=== PATIENT | female | born 1935 | race American Indian/Alaskan Native ===

== ENCOUNTER 2016-12-09 20:23 | Observation (INO) | payer MEDICARE, MEDICAID ==
[2016-12-09 20:35] VITALS: BMI 38.0
--- NOTE | 2016-12-09 21:05 | ED PDOC ---
Arrival/HPI - General Chief Complaint: Syncope Time Seen by Provider: 12/09/16 20:31 Historian: Patient - History of Present Illness Narrative History of Present Illness (Text): 12/09/16 20:45 Rama Reeves is an 81 year old female, whose past medical history includes hypertension and diabetes, who presents to the ED accompanied by family status post syncopal episode. Family states patient was at [employer] tonight when she had a syncopal episode. Daughter states patient's head fellback, eyes rolled back, and was shaking a bit. Patient states she feels fine currently. Patient denies any vision changes, speech changes, headache, dizziness, fever, chills, chest pain, shortness of breath, abdominal pain, nausea, vomiting, diarrhea, urinary symptoms, back pain, neck pain, or any other complaints. Time/Duration: Other Symptom Onset: Gradual Symptom Course: Unchanged Activities at Onset: Rest, Light Context: Home Past Medical History - Provider Review Nursing Documentation Reviewed: Yes - Cardiac Hx Cardiac Disorders: Yes Hx Hypertension: Yes - Pulmonary Hx Respiratory Disorders: No - Neurological Hx Neurological Disorder: No - HEENT Hx HEENT Disorder: No - Renal Hx Renal Disorder: No - Endocrine/Metabolic Hx Endocrine Disorders: Yes Hx Diabetes Mellitus Type 2: Yes - Hematological/Oncological Hx Blood Disorders: No - Integumentary Hx Dermatological Disorder: No Hx Basal Cell Carcinoma: No - Musculoskeletal/Rheumatological Hx Musculoskeletal Disorders: No - Gastrointestinal Hx Gastrointestinal Disorders: No - Genitourinary/Gynecological Hx Genitourinary Disorders: No - Psychiatric Hx Psychophysiologic Disorder: No Hx Substance Use: No - Surgical History Hx Amputation: Yes (toe) Family/Social History - Physician Review Nursing Documentation Reviewed: Yes Family/Social History: No Known Family HX Smoking Status: Never Smoked Hx Alcohol Use: No Hx Substance Use: No Allergies/Home Meds Allergies/Adverse Reactions: Allergies No Known Allergies Allergy (Verified 12/09/16 20:35) Home Medications: Home Meds Medication Instructions Recorded Confirmed Allopurinol [Zyloprim] 300 mg PO DAILY 12/10/16 12/10/16 Cyanocobalamin [Vitamin B12 1000 1,000 mcg PO DAILY 12/10/16 12/10/16 mcg Tab] Furosemide [Lasix] 40 mg PO DAILY 12/10/16 12/10/16 Insulin Glargine, Recombina 100 unit SC BID 12/10/16 12/10/16 [Lantus] Insulin Lispro [Humalog Kwikpen 200 unit SQ TID 12/10/16 12/10/16 U-200] Linagliptin [Tradjenta] 5 mg PO DAILY 12/10/16 12/10/16 Linagliptin [Tradjenta] 5 mg PO DAILY 12/10/16 12/10/16 Losartan [Cozaar] 100 mg PO DAILY 12/10/16 12/10/16 Magnesium Oxide [Magnesium] 400 mg PO DAILY 12/10/16 12/10/16 Paricalcitol [Zemplar] 2 mcg PO DAILY 12/10/16 12/10/16 Sevelamer Carbonate [Renvela] 800 mg PO DAILY 12/10/16 12/10/16 Review of Systems - Physician Review All systems were reviewed & negative as marked: Yes - Review of Systems Constitutional: Normal. absent: Fevers Eyes: Normal ENT: Normal Respiratory: Normal. absent: SOB, Cough Cardiovascular: Syncope Gastrointestinal: Normal. absent: Abdominal Pain, Diarrhea, Nausea, Vomiting Genitourinary Female: Normal. absent: Dysuria, Frequency, Hematuria, Urine Output Changes Musculoskeletal: Normal. absent: Back Pain, Neck Pain Skin: Normal. absent: Rash Neurological: Normal. absent: Headache, Dizziness Endocrine: Normal Hemo/Lymphatic: Normal Psychiatric: Normal Physical Exam Vital Signs Reviewed: Yes Vital Signs Pulse Resp BP Pulse Ox 12/10/16 03:36 74 19 102/41 L 97 12/10/16 02:34 71 26 H 129/43 L 96 12/10/16 01:04 73 23 108/38 L 95 12/09/16 23:48 75 19 112/43 L 96 12/09/16 20:39 78 24 134/80 99 Temperature: Afebrile Blood Pressure: Normal Pulse: Regular Respiratory Rate: Normal Appearance: Positive for: Well-Appearing, Non-Toxic, Comfortable Pain Distress: None Mental Status: Positive for: Alert and Oriented X 3 - Systems Exam Head: Present: Atraumatic, Normocephalic Pupils: Present: PERRL Extroacular Muscles: Present: EOMI Conjunctiva: Present: Normal Mouth: Present: Moist Mucous Membranes Neck: Present: Normal Range of Motion Respiratory/Chest: Present: Clear to Auscultation, Good Air Exchange. No: Respiratory Distress, Accessory Muscle Use Cardiovascular: Present: Regular Rate and Rhythm, Normal S1, S2. No: Murmurs Abdomen: Present: Normal Bowel Sounds. No: Tenderness, Distention, Peritoneal Signs Back: Present: Normal Inspection Upper Extremity: Present: Normal Inspection. No: Cyanosis, Edema Lower Extremity: Present: Normal Inspection. No: Edema Neurological: Present: GCS=15, CN II-XII Intact, Speech Normal, Motor Func Grossly Intact, Normal Sensory Function, Normal Cerebellar Funct, Memory Normal Skin: Present: Warm, Dry, Normal Color. No: Rashes Psychiatric: Present: Alert, Oriented x 3, Normal Insight, Normal Concentration Medical Decision Making ED Course and Treatment: 12/09/16 20:45 Impression: 81 y/o female presents s/p syncope. Differential Diagnosis included but are not limited to: syncope Plan: -- CT Head w/o contrast -- EKG -- CXR -- Labs, troponin, D-dimer -- Reassess and disposition Progress Notes: Reviewed EKG, NSR at [address] bpm[address] Non-specific ST/T wave changes. 12/09/16 22:20 Reviewed radiology, CXR shows mild cardiomegaly, no other acute processes. CT Head shows: 1. Nonspecific white matter changes. Acute infarction may be CT occult within first 24 hours. If a focal deficit persists, consider followup CT or MRI for further evaluation. 2. Incidental/non-acute findings are described above. 12/09/16 22:54 Reviewed labs, D-dimer: 1.55. Will order VQ scan. Case discussed with Dr. Alejandre, who is aware and agrees with plan. Accepts pt in to his service. Pt will go to Telemetry observation for syncope. Pt is no acute distress. Discussed results and hospital observation plan with pt and family, who are aware and verbalize understanding. 12/10/16 01:15 Reviewed VQ scan, shows: Ventilation: Heterogeneous uptake. Perfusion: No moderate or large defects. IMPRESSION: Low probability for pulmonary embolism. - Lab Interpretations Lab Results: 12/09/16 21:20 12/09/16 21:20 Lab Results 12/09/16 21:30: D-Dimer, Quantitative 1.55 H 12/09/16 21:20: Sodium 135, Potassium 4.8, Chloride 100, Carbon Dioxide 26, Anion Gap 14, BUN 33 H, Creatinine 2.0 H, Est GFR ( Amer) 29, Est GFR ( Non-Af Amer) 24, Random Glucose 211 H, Calcium 9.1, Total Bilirubin 0.5, AST 27 , ALT 24, Alkaline Phosphatase 110, Troponin I < 0.01, Total Protein 8.2, Albumin 4.3, Globulin 3.8, Albumin/Globulin Ratio 1.1 12/09/16 21:20: PT 10.3, INR 0.95, APTT 27.0 12/09/16 21:20: WBC 4.6, RBC 3.74, Hgb 10.8 L, Hct 31.6 L, MCV 84.5, MCH 28.9, MCHC 34.2, RDW 15.7 H, Plt Count 339, MPV 9.1, Gran % 66.3, Lymph % (Auto) 24.4 , Hardin % (Auto) 6.5 H, Eos % (Auto) 2.4, Baso % (Auto) 0.4, Gran # 3.04, Lymph # 1.1 L, Hardin # 0.3, Eos # 0.1, Baso # 0.02 12/09/16 20:36: POC Glucose (mg/dL) 217 H I have reviewed the lab results: Yes - RAD Interpretation Narrative RAD Interpretations (Text): CXR shows mild cardiomegaly, no other acute processes. CT Head shows: Limitations: Motion artifact - mild. Brain: Tjzt-og-tpghzbfr atrophy. No definite intracranial hemorrhage. No mass. Few scattered foci of decreased attenuation within periventricular/subcortical white matter. No definite edema. Ventricles: No hydrocephalus. Bones/joints: No acute fracture. Soft tissues: Unremarkable. Vasculature: Atherosclerotic disease of intracranial arteries. Sinuses: Scattered mild mucosal thickening of RIGHT ethmoid sinus. Mastoid air cells: No mastoid effusion. Orbits: Unremarkable as visualized. IMPRESSION: 1. Nonspecific white matter changes. Acute infarction may be CT occult within first 24 hours. If a focal deficit persists, consider followup CT or MRI for further evaluation. 2. Incidental/non-acute findings are described above. Radiology Orders: 12/09/16 20:45 HEAD W/O CONTRAST [CT] Stat 12/09/16 20:46 CHEST ONE VIEW [RAD] Stat 12/09/16 22:56 LUNG PERF & VENT SCAN [NM] Stat Sock Turner: ED Physician, Radiologist - EKG Interpretation Interpreted by ED Physician: Yes Type: 12 lead EKG - Medication Orders Current Medication Orders: Discontinued Medications Allopurinol (Zyloprim) 300 mg PO DAILY [facility] Last Admin: 12/11/16 10:00 Dose: 300 mg Aspirin (Aspirin Chewable) 81 mg PO DAILY [facility] Last Admin: 12/11/16 10:00 Dose: 81 mg Atorvastatin Calcium (Lipitor) 40 mg PO DAILY [facility] Last Admin: 12/11/16 10:00 Dose: 40 mg Carvedilol (Coreg) 3.125 mg PO BID [facility] Last Admin: 12/11/16 17:01 Dose: 3.125 mg Cholecalciferol (Vitamin D) 2,000 iu PO DAILY [facility] Last Admin: 12/11/16 09:59 Dose: 2,000 iu Cyanocobalamin (Vitamin B12 1000 Mcg Tab) 1,000 mcg PO DAILY [facility] Last Admin: 12/11/16 10:00 Dose: 1,000 mcg Enoxaparin Sodium (Lovenox) 30 mg SC DAILY [facility] Last Admin: 12/10/16 10:07 Dose: 30 mg Heparin Sodium (Porcine) (Heparin) 5,000 units SC Q8 [facility] PRN Reason: Protocol Last Admin: 12/11/16 14:00 Dose: Not Given Non-Admin Reason: Patient Refused Iron Sucrose 200 mg/ Sodium (Chloride) 110 mls @ 110 mls/hr IVPB DAILY [facility] Stop: 12/12/16 10:59 Last Admin: 12/11/16 09:53 Dose: 110 mls/hr Insulin Human Lispro (Humalog Low) 0 units SC ACHS [facility] Last Admin: 12/11/16 17:00 Dose: 1 units Paricalcitol [ Zemplar] 2 Mcg ( Home Med) 2 mcg PO DAILY [facility] Last Admin: 12/11/16 10:00 Dose: Pantoprazole Sodium (Protonix Ec Tab) 40 mg PO ACB [facility] Last Admin: 12/11/16 08:08 Dose: 40 mg Sevelamer HCl (Renagel) 800 mg PO DAILY [facility] Last Admin: 12/11/16 09:59 Dose: 800 mg - Scribe Statement The provider has reviewed the documentation as recorded by the Maira Anderson Provider Attestation: All medical record entries made by the Maira were at my direction and personally dictated by me. I have reviewed the chart and agree that the record accurately reflects my personal performance of the history, physical exam, medical decision making, and the department course for this patient. I have also personally directed, reviewed, and agree with the discharge instructions and disposition. Disposition/Present on Arrival - Present on Arrival Any Indicators Present on Arrival: No History of DVT/PE: No History of Uncontrolled Diabetes: No Urinary Catheter: No History of Decub. Ulcer: No History Surgical Site Infection Following: None - Disposition Have Diagnosis and Disposition been Completed?: Yes Diagnosis: Syncope Disposition: HOSPITALIZED Disposition Time: 22:55 Condition: FAIR
[2016-12-09 21:32] LABS: ADD MANUAL DIFF? NO
[2016-12-09 21:34] LABS: BASO # 0.02 K/mm3 (0.0-2.0); BASO % 0.4 % (0.0-3.0); EOS # 0.1 (0.0-0.7); EOS % 2.4 % (1.5-5.0); GRAN # 3.04 (1.4-6.5); GRAN % 66.3 % (50.0-68.0); HEMATOCRIT 31.6 % (36.0-48.0); LYMPH # 1.1 (1.2-3.4); LYMPH % 24.4 % (22.0-35.0); MEAN CELL VOLUME 84.5 fL (80.0-105.0); MEAN CORPUSCULAR HEMOGLOBIN 28.9 pg (25.0-35.0); MEAN CORPUSCULAR HGB CONC 34.2 g/dl (31.0-37.0); MEAN PLATELET VOLUME 9.1 fl (7.0-11.0); MONO # 0.3 (0.1-0.6); MONO % 6.5 % (1.0-6.0); PLATELET COUNT 339 10^3/uL (120.0-450.0); RED CELL DISTRIBUTION WIDTH 15.7 % (11.5-14.5); WHITE BLOOD COUNT 4.6 10^3/ul (4.5-11.0)
[2016-12-09 21:44] LABS: ALB/GLOB RATIO 1.1 (1.1-1.8); ALKALINE PHOSPHATASE 110 U/L (38-133); ALT/SGPT 24 U/L (7-56); AST/SGOT 27 U/L (15-39); BILIRUBIN,TOTAL 0.5 mg/dL (0.2-1.3); BLOOD UREA NITROGEN 33 mg/dL (7-21); CALCIUM 9.1 mg/dL (8.4-10.5); CARBON DIOXIDE 26 mmol/L (21-33); CHLORIDE 100 mmol/L (98-107); GFR AFRICAN-AMERICAN 29; GLUCOSE,RANDOM 211 mg/dL (70-110); POTASSIUM 4.8 mmol/L (3.6-5.0); SODIUM 135 mmol/L (132-148); TOTAL PROTEIN 8.2 g/dL (5.8-8.3)
--- NOTE | 2016-12-09 21:45 | CT ---
EXAM: CT Head Without Intravenous Contrast CLINICAL HISTORY: 81 years old, female; Signs and symptoms; Dizziness; Additional info: Syncope TECHNIQUE: Axial computed tomography images of the head/brain without intravenous contrast. This CT exam was performed using one or more of the following dose reduction techniques: automated exposure control, adjustment of the mA and/or kV according to patient size, and/or use of iterative reconstruction technique. COMPARISON: No relevant prior studies available. FINDINGS: Limitations: Motion artifact - mild. Brain: Oykl-xy-talahocb atrophy. No definite intracranial hemorrhage. No mass. Few scattered foci of decreased attenuation within periventricular/subcortical white matter. No definite edema. Ventricles: No hydrocephalus. Bones/joints: No acute fracture. Soft tissues: Unremarkable. Vasculature: Atherosclerotic disease of intracranial arteries. Sinuses: Scattered mild mucosal thickening of RIGHT ethmoid sinus. Mastoid air cells: No mastoid effusion. Orbits: Unremarkable as visualized. IMPRESSION: 1. Nonspecific white matter changes. Acute infarction may be CT occult within first 24 hours. If a focal deficit persists, consider followup CT or MRI for further evaluation. 2. Incidental/non-acute findings are described above.
[2016-12-09 21:56] LABS: TROPONIN I < 0.01 ng/mL
[2016-12-09 22:11] LABS: INR 0.95 (0.93-1.08)
--- NOTE | 2016-12-10 01:12 | NM ---
EXAM: NM Lung Perfusion and Ventilation Scan CLINICAL HISTORY: 81 years old, female; Signs and symptoms; Shortness of breath; Additional info: R/O pe TECHNIQUE: Nuclear Medicine ventilation and perfusion images of the lungs were obtained in multiple projections following inhalation of Xenon-133 gas and injection of Tc99m MAA. COMPARISON: CR - CHEST ONE VIEW 12/09/2016 9:13:31 PM FINDINGS: Ventilation: Heterogeneous uptake. Perfusion: No moderate or large defects. IMPRESSION: Low probability for pulmonary embolism.
[2016-12-10 03:53] VITALS: O2SAT 97
[2016-12-10] MEDS: Pantoprazole 40 mg EC Tab PO SCH (08:27)
[2016-12-10] MEDS: Insulin Lispro (humaLOG) LOW Coverage SC SCH ×4 (08:27→23:05)
[2016-12-10 09:02] LABS: ADD MANUAL DIFF? NO
[2016-12-10 09:11] LABS: BASO # 0.02 K/mm3 (0.0-2.0); BASO % 0.5 % (0.0-3.0); EOS # 0.1 (0.0-0.7); EOS % 2.3 % (1.5-5.0); GRAN # 2.28 (1.4-6.5); GRAN % 58.3 % (50.0-68.0); HEMATOCRIT 31.2 % (36.0-48.0); LYMPH # 1.2 (1.2-3.4); LYMPH % 30.7 % (22.0-35.0); MEAN CELL VOLUME 84.1 fL (80.0-105.0); MEAN CORPUSCULAR HEMOGLOBIN 28.3 pg (25.0-35.0); MEAN CORPUSCULAR HGB CONC 33.7 g/dl (31.0-37.0); MEAN PLATELET VOLUME 8.7 fl (7.0-11.0); MONO # 0.3 (0.1-0.6); MONO % 8.2 % (1.0-6.0); PLATELET COUNT 309 10^3/uL (120.0-450.0); RED CELL DISTRIBUTION WIDTH 15.7 % (11.5-14.5); RETIC% 1.16 % (0.5-1.5); WHITE BLOOD COUNT 3.9 10^3/ul (4.5-11.0)
--- NOTE | 2016-12-10 09:25 | CON ---
DATE: 12/10/2016 HISTORY OF PRESENT ILLNESS: The patient is an 81-year-old woman who was at [employer] with out eating for several hours who had a witnessed syncopal episode. PAST MEDICAL HISTORY: Notable for diabetes mellitus and hypertension. There is no previous cardiac history noted. No seizure disorder noted in the past. Why she did not eat is unclear to the patient as well as any of her relatives or friends. She denies chest pain, denies shortness of breath. SOCIAL HISTORY: Negative smoker. REVIEW OF SYSTEMS: A 14-point review of systems was free of cardiac symptomatology. PHYSICAL EXAMINATION: GENERAL: The patient is sitting in bed, eating without complaints. VITAL SIGNS: Blood pressure is 109/50, the heart rate is in the 70s, normal sinus rhythm. NECK: Negative JVD. LUNGS: Without rales. HEART: Reveals S1, S2. EXTREMITIES: Without edema. EKG shows normal sinus rhythm with nonspecific ST-T changes with PVCs. LABORATORIES: Hemoglobin is 10.8. Chemistries: Glucose is 216 with a BUN and creatinine of 33 and 2.0 which was yesterday on admission. Troponin is negative x 1. IMPRESSION: 1. Witnessed syncope. 2. Diabetes mellitus. 3. Hypertension. 4. Probable dehydration. 5. No evidence for acute coronary syndrome. We will obtain a second troponin. In addition, we will order an echocardiogram to rule out cardiac pathology. Berhane Vargas MD cc: [id number] TT: 12/10/2016 09:24:44 Confirmation # [id number] Dictation # [id number]
[2016-12-10 09:33] LABS: ALB/GLOB RATIO 1.1 (1.1-1.8); BILIRUBIN,DIRECT 0.3 mg/dL (0.0-0.4); BILIRUBIN,TOTAL 0.3 mg/dL (0.2-1.3); CALCIUM 9.1 mg/dL (8.4-10.5); MAGNESIUM 1.9 mg/dL (1.7-2.2); PHOSPHOROUS 3.5 mg/dL (2.5-4.5); POTASSIUM 4.6 mmol/L (3.6-5.0); TOTAL PROTEIN 8.1 g/dL (5.8-8.3); URIC ACID 3.6 mg/dL (2.5-6.2)
[2016-12-10 09:40] LABS: IRON 53 ug/dL (45-180)
[2016-12-10 09:47] LABS: TROPONIN I 0.01 ng/mL
[2016-12-10 09:53] LABS: T4 8.3 ug/dL (5.5-11.0)
[2016-12-10] MEDS ORDERED: Enoxaparin 30 mg Syringe SC SCH (10:00)
[2016-12-10 10:06] LABS: THYROID STIMULATING HORMONE 3.03 mIU/mL (0.46-4.68)
[2016-12-10] MEDS: PARICALCITOL 2 MCG PO SCH (10:49)
--- NOTE | 2016-12-10 10:58 | RAD ---
PROCEDURE: CHEST RADIOGRAPH, 1 VIEW HISTORY: pain COMPARISON: None available. FINDINGS: LUNGS: Clear. PLEURA: No pneumothorax or pleural fluid seen. CARDIOVASCULAR: Mild cardiomegaly OSSEOUS STRUCTURES: No significant abnormalities. VISUALIZED UPPER ABDOMEN: Normal. OTHER FINDINGS: None. IMPRESSION: No active disease.
--- NOTE | 2016-12-10 11:03 | CARD ---
APPROVED REPORT EKG Measurement Heart [id number] DC [id number] <Conclusion> Sinus rhythm with frequent premature ventricular complexes Nonspecific T wave abnormality Abnormal ECG
--- NOTE | 2016-12-10 11:07 | CARD ---
APPROVED REPORT EKG Measurement Heart [id number] NM [id number] [id number] <Conclusion> Sinus rhythm with frequent premature ventricular complexes Nonspecific T wave abnormality Prolonged QT Abnormal ECG
--- NOTE | 2016-12-10 11:54 | HP ---
HISTORY OF PRESENT ILLNESS: The patient is an 81-year-old morbidly obese female who came to the Emergency Room in the late night hours as an ambulatory walk-in. According to the triag e note, the patient, while in the [place], had a syncopal episode, which was apparently witnessed by t he family and people around her. According to the Emergency Room physician evaluation, the patient w as accompanied by family after experience of syncopal episode. The patient's daughter stated that th e patient head fell back, eyes rolled back, and she was shaking. When the patient reached the Emerge ncy Room, the patient was feeling fine. REVIEW OF SYSTEMS: A 13-system review was done. Pertinent positives and negatives dictated above. CODE STATUS: Full code. LIVING WILL AND ADVANCED DIRECTIVE: None. HEIGHT: 5 feet 8 inches. WEIGHT: 275 pounds. BMI: 42. ALLERGIES: None. HOME MEDICATIONS: 1. (Amlodipine) Norvasc 10 mg daily. 2. Renvela 800 mg daily. 3. Zemplar 2 mcg daily. 4. Magnesium oxide 400 mg daily. 5. Cozaar 100 mg daily. 6. Tradjenta 5 mg daily. 7. Humalog Pen 3 times a day; dose unknown. 8. Lantus insulin twice a day; dose unknown. 9. Lasix 40 mg daily. 10. Vitamin B12, 1000 mcg tablet daily. 11. Zyloprim 300 mg daily. The patient is seen by Dr. Blunt in [place], Dr. Morton, and ____ according to the patient's [place]. SOCIAL HISTORY: Negative for smoking, negative for alcohol, negative for substance abuse, negative f or ____ communicable transmissible disease. FAMILY HISTORY: Positive for diabetes, hypertension, kidney problems. OCCUPATIONAL HISTORY: Elderly disabled 81-year-old female. MENSTRUAL HISTORY: Postmenopausal. PAST MEDICAL HISTORY: History of hypertension, history of chronic kidney disease, history of insulin -dependent diabetes mellitus, history of morbid obesity with elevated body mass index, history of hyp omagnesemia, history of hypertension, history of questionable congestive heart failure, history of hy peruricemia, history of morbid obesity, history of hypertension, history of left foot of toe amputati on. The patient's past medical history is significant for morbid obesity with some gait dysfunction. The patient's past medical history is also significant for toe amputation, history of morbid obesit y. PHYSICAL EXAMINATION: GENERAL: The patient is seen in room 261, bed 2. The patient's daughters are at bedside. The patie nt is lying in the bed. The patient needs assistance from lying to sitting up. VITAL SIGNS: T-max 97.5, heart rate 74-80, blood pressure 129/43, 102/41, 109/50, respirations 20, O 2 sat 97%. HEAD: Normocephalic, atraumatic. HEENT: Shows pinkish pale conjunctivae. No facial asymmetry. Questionable macroglossia. No facial asymmetry noted. NECK: Questionable soft carotid bruit. CHEST: Kyphosis. LUNGS: Shows no rales, crackles, or wheezing. CARDIOVASCULAR: Shows S1, S2, regular rhythm. Questionable soft systolic murmur, left sternal borde r, right second intercostal space. ABDOMEN: Morbidly obese. GENITALIA: Female. RECTAL: Deferred. EXTREMITIES: Show no pitting edema, no calf tenderness, no Homans' sign. Positive amputation of the left foot toe noted. MUSCULOSKELETAL: Shows a body mass index of 42. NEUROLOGIC: The patient is alert, awake, oriented x 3. Motor strength is 5/5 in upper and lower ext remity. GAIT: Could not be tested because of body mass index limitation and assistance. VASCULAR: Palpable pulses. Cranial nerves II-XII intact. DIAGNOSTICS: WBC 4.6 and 3.9, hemoglobin and hematocrit 10.8 and 31.6, and 10.5 and 31.2, platelets 339, 309. PT/PTT was normal. D-dimer 1.55. Chemistries significant for BUN ____ of 33 and 2.0 and 34 and 2.0. Glucose 217, 211, 158, calcium 9.1. Uric acid 3.6, magnesium 1.9, phosphorus 3.5. Iron 53, saturation 15. CPK 308. Troponin is 0.01 x 2 negative. Cholesterol 115, LDL 47, HDL 38, TSH 3 .0. T4 is 8.3. The patient had a CT of the head done, which was noted which shows cerebral cortical atrophy, periven tricular white matter ischemic disease, right ethmoid sinus thickening. The patient's CAT scan [facility] reading was also reviewed. EKG was done in the Emergency Room, which showed sinus rhythm PVCs. Repeat EKG from today even shows sinus rhythm with PVCs. The patient was seen and evaluated in the Emergency Room by the Emergency Room physician, Dr. Kleber damon. The patient was evaluated in the Emergency Room. The patient had a VQ scan done, which was low p robability. The patient was evaluated in the Emergency Room by the Emergency Room physician and [facility] ed on telemetry observation. IMPRESSION AND PLAN: 1. Syncope, etiology undetermined. 2. Hypotension. 3. Frequent premature ventricular complexes and premature ventricular contractions. 4. Normocytic anemia and leukopenia, etiology undetermined. 5. Elevated D-dimer, etiology undetermined. 6. Chronic kidney disease stage III/IV. 7. Cerebral cortical atrophy of the brain. 8. Small-vessel ischemic disease of the brain. 9. Morbid obesity with elevated body mass index. 10. History of hypertension. 11. History of chronic kidney disease stage III/IV. 12. Possible hyperparathyroidism. 13. History of possible secondary hyperparathyroidism. 14. History of hypertension. 15. Insulin-requiring diabetes mellitus. 16. 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 17. History of hyperuricemia. PLAN: At this time, the patient has been ordered iron studies, hepatitis panel. Lipid panel has bee n ordered. Thyroid panel has been ordered. Erythropoietin PTH level ordered. Cardiology and neurol ogy evaluation ordered, RPR ordered. CURRENT MEDICATIONS: Aspirin 81 daily. The patient is started on Coreg 3.125 twice a day, Humalog l ow-dose sliding scale coverage a.c. and at bedtime. Hemoglobin A1c has been ordered. The patient medel s been ordered vitamin B12. The patient has been ordered vitamin D 25-hydroxy. The patient is on in sulin sliding scale coverage, low-dose Humalog, Lipitor 40 daily, Lovenox 30 mg subQ daily, Zemplar 2 mcg daily, Protonix 40 mg daily, (sevelamer) Renagel 800 mg daily, vitamin B12, 1000 mcg p.o. daily, Zyloprim 100 mg daily. The patient's carotid ultrasound, MRI/MRA of the brain, EKG repeat have been ordered. Echo with Dopp ler, EEG ordered. The patient is on a consistent carbohydrate renal diet. The patient will be order ed a repeat EKG for the morning. The patient's Lovenox will be discontinued because of the chronic k idney disease. The patient will be placed on subQ heparin for DVT prophylaxis. At present, the cecilia ent is awaiting above diagnostic and therapeutic intervention. The patient is awaiting cardiology, n eurology evaluation, and ____ recommendation. The patient's family was explained about the details o f the patient's present diagnosis, need for further diagnostic and therapeutic intervention. Discuss ed and explained to the patient and the patient's family at length. All questions and concerns answe red. Dictated and electronically signed, not read. Gerald Alejandre MD cc: [id number] TT: 12/10/2016 11:40:20 jn 12/10/2016 10:53:35
--- NOTE | 2016-12-10 14:43 | RAD ---
HISTORY: Congestive heart failure. COMPARISON: No prior. TECHNIQUE: Chest PA and lateral FINDINGS: LUNGS: No active pulmonary disease. PLEURA: No significant pleural effusion identified. No pneumothorax apparent. CARDIOVASCULAR: Cardiomegaly. No evidence of acute, significant cardiovascular disease. OSSEOUS STRUCTURES: No significant abnormalities. VISUALIZED UPPER ABDOMEN: Normal. OTHER FINDINGS: None. IMPRESSION: No active disease. No significant interval change compared to the prior examination(s).
--- NOTE | 2016-12-10 14:46 | MRI ---
PROCEDURE: MRI BRAIN WITHOUT CONTRAST HISTORY: syncope COMPARISON: None. TECHNIQUE: Multiplanar, multisequence MR images of the brain were obtained without intravenous contrast enhancement. FINDINGS: HEMORRHAGE: None DWI: No evidence of an acute or early subacute infarction. BRAIN PARENCHYMA: No mass effect or edema. Mild chronic microvascular changes are seen. There are no acute infarcts VENTRICLES: Unremarkable. No hydrocephalus. CRANIUM: Unremarkable. ORBITS: Grossly unremarkable. PARANASAL SINUSES/MASTOIDS: Clear VASCULAR SYSTEM: Skull base flow voids intact. OTHER FINDINGS: None. IMPRESSION: No acute intracranial findings
--- NOTE | 2016-12-10 14:50 | MRI ---
PROCEDURE: Magnetic Resonance Angiography Brain HISTORY: SYNCOPE COMPARISON: None available. TECHNIQUE: 3D time of flight MR angiography of the intracranial arteries was performed. Rotating maximum intensity projection images were generated. FINDINGS: INTERNAL CEREBRAL ARTERIES: Unremarkable. The skull base, petrous, cavernous and supraclinoid segments are bilaterally widely patient. ANTERIOR CEREBRAL ARTERIES: Unremarkable. A1 and A2 segments are widely patent. Smaller distal branches unremarkable, as visualized. MIDDLE CEREBRAL ARTERIES: Unremarkable. M1 and M2 segments are widely patent. Perisylvian branches grossly symmetric. POSTERIOR CIRCULATION: Basilar Artery: Unremarkable. Distal Vertebral Arteries: Unremarkable. Posterior Cerebral Arteries: Unremarkable. Posterior Inferior Cerebellar Arteries: Unremarkable. ANEURYSM/ VASCULAR MALFORMATIONS: None. OTHER FINDINGS: None. IMPRESSION: Unremarkable MR angiography of the brain.
[2016-12-10 16:14] LABS: TRANSFERRIN 262.5 mg/dL (206-381)
--- NOTE | 2016-12-10 17:45 | CARD ---
APPROVED REPORT EXAM: Two-dimensional and M-mode echocardiogram with Doppler and color Doppler. INDICATION Syncope 2D DIMENSIONS IVSd1.3 (0.7-1.1cm)LVDd5.0 (3.9-5.9cm) PWd1.3 (0.7-1.1cm)LVDs3.3 (2.5-4.0cm) FS (%) 34.9 %LVEF (%)63.8 (>50%) M-Mode DIMENSIONS Aortic Root3.20 (2.2-3.7cm)Aortic Cusp Exc.1.80 (1.5-2.0cm) Aortic Valve AoV Peak Ghkmzljo736.0cm/Jazmyne Peak GR.14mmHg Mitral Valve E/A ratio0.0 TDI E/Lateral E'0.0E/Medial E'0.0 Pulmonary Valve PV Peak Pkbnixcm628.0cm/sPV Peak Grad.5mmHg Tricuspid Valve TR Peak [id number]/sRAP [id number] Peak Gr.47mmHg [id number] LEFT VENTRICLE The left ventricle is normal size. There is mild concentric left ventricular hypertrophy. The left ventricular function is normal. The left ventricular ejection fraction is within the normal range. RIGHT VENTRICLE The right ventricle is normal size. There is normal right ventricular wall thickness. The right ventricular systolic function is normal. ATRIA The left atrium is mildly dilated. The right atrium is mildly dilated. AORTIC VALVE The aortic valve is not well visualized. No aortic regurgitation is present. MITRAL VALVE The mitral valve is mildly thickened. Mitral regurgitation is trace to mild. TRICUSPID VALVE There is moderate pulmonary hypertension. PULMONIC VALVE There is mild pulmonic valvular regurgitation. GREAT VESSELS The aortic root is normal in size. The IVC was not visualized. PERICARDIAL EFFUSION There is no pericardial effusion. <Conclusion> The left ventricle is normal size. There is mild concentric left ventricular hypertrophy. The left ventricular function is normal. The left ventricular ejection fraction is within the normal range. Mitral regurgitation is trace to mild. There is moderate pulmonary hypertension. There is mild pulmonic valvular regurgitation.
--- NOTE | 2016-12-10 18:56 | US ---
PROCEDURE: Bilateral carotid artery duplex ultrasound HISTORY: Carotid stenosis syncope. PHYSICIAN(S): Berhane Dawn MD. TECHNIQUE: Duplex sonography and color-flow Doppler were used to evaluate the carotid bifurcations and limited segments of the vertebral arteries bilaterally. FINDINGS: There is mild focal smooth heterogeneous echogenic plaque noted at the carotid bifurcations bilaterally. The peak systolic velocity in the proximal right internal carotid artery is 74 cm/sec. This corresponds to a 20 to 39% proximal right ICA stenosis. Normal systolic velocities are noted in the proximal right external carotid artery. There is antegrade flow in the right vertebral artery. The peak systolic velocity in the proximal left internal carotid artery is 76 cm/sec. This corresponds to a 20 to 39% proximal left ICA stenosis. Normal systolic velocities are noted in the proximal left external carotid artery. There is antegrade flow in the left vertebral artery. IMPRESSION: 1. Bilateral 20-39% proximal ICA stenoses. 2. Antegrade flow in both vertebral arteries.
--- NOTE | 2016-12-11 02:26 | CON ---
DATE: 12/10/2016 HISTORY OF PRESENT ILLNESS: She is an 81-year-old black female with past medical history of hyperten kunal and diabetes. The patient went to [employer] and had a syncopal episode and the patient fell back a nd rolled her eyes and a little bit shaking, no tongue bite, no urinary incontinence. Daughter is at bedside and denies any visual changes. No speech problem, no dizziness. PAST MEDICAL HISTORY: Hypertension, diabetes. ALLERGIES: No known drug allergies. HOME MEDICATIONS: Allopurinol, Lasix, insulin, Cozaar and . REVIEW OF SYSTEMS: The patient goes to Dr. Young for diabetic control. PHYSICAL EXAMINATION: HEENT: Normocephalic, atraumatic. NECK: Supple. NEUROLOGIC: Alert, awake, oriented x 3. No aphasia. Cranial nerves II through XII were tested. Pu pils reactive. EOM intact. Visual ignacio full. No facial asymmetry. Tongue midline. Motor examin ation: Moves all the extremities spontaneously. Deep tendon reflexes 1+. Both plantars are downgoi ng. Sensory appears intact. Cerebellar gait was deferred. IMPRESSION: Syncope, less likely seizure. DIAGNOSTIC IMAGING: MRI of the head was done, which was reported negative. CT was negative. Caroti d Doppler 20-30% stenosis. PLAN: Continue present management. Will follow up. Eduin Mcgowan MD cc: [id number] TT: 12/11/2016 02:25:37 Confirmation # [id number] Dictation # [id number] yoanna
[2016-12-11] MEDS: Pantoprazole 40 mg EC Tab PO SCH (08:08)
[2016-12-11] MEDS: Insulin Lispro (humaLOG) LOW Coverage SC SCH ×3 (08:10→17:00)
[2016-12-11] MEDS: PARICALCITOL 2 MCG PO SCH (10:00)
[2016-12-11 12:15] VITALS: PULSE 53; RESP 19; TEMP 97.6
--- NOTE | 2016-12-11 15:17 | CARD ---
APPROVED REPORT EKG Measurement Heart [id number] <Conclusion> Sinus rhythm with frequent premature ventricular complexes Otherwise normal ECG
--- NOTE | 2016-12-11 15:19 | DS ---
The patient is seen in room 261, bed 2. Telemetry shows sinus rhythm. PHYSICAL EXAMINATION: VITAL SIGNS: T-max is 98.2. Heart rate 71-75, blood pressure 105/78, 133/73, respiration 20, O2 sat is 96%-97%. HEAD: Normocephalic, atraumatic. HEENT: Shows pinkish, pale conjunctivae, anicteric sclerae. HEAD: Normocephalic, atraumatic. HEENT: Shows pinkish, pale conjunctivae, anicteric sclerae. No oropharyngeal lesion. NECK: No neck rigidity. CHEST: Kyphosis. LUNGS: Shows no rales, crackles, or wheezing. CARDIOVASCULAR: S1, S2. Regular rhythm. Questionable soft systolic murmur left sternal border, right second intercostal space. ABDOMEN: Obese, positive bowel sounds. GENITALIA: Female. RECTAL: Deferred. EXTREMITIES: Shows no pitting edema, no calf tenderness, no Homans sign. MUSCULOSKELETAL: Shows a body mass index of 42. NEUROLOGIC: The patient is able to stand up with slight assistance, which is much improved since yesterday. GAIT: Not tested. PSYCHIATRIC: Negative for anxiety, depression. Negative for suicidal or homicidal ideation, negative for auditory or visual hallucination. DIAGNOSTICS: From 12/10 were reviewed. New diagnostics: Hemoglobin A1c 7.3. Uric acid is normal. Iron level is low normal. Iron saturation is low. Ferritin is low normal. Troponin, 2 sets are negative. Cholesterol 115. Vitamin B12 is normal. Vitamin D 25-hydroxy is 29.8. RPR is negative. Hepatitis A, B, C and HIV are negative. Chest x-ray PA and lateral was reviewed. Chest x-ray shows cardiomegaly. EKG shows . Echocardiogram, ejection fraction 63%, right ventricular systolic pressure 57 mmHg, mild concentric left ventricular hypertrophy, trace to mild mitral regurgitation, moderate pulmonary arterial hypertension. EKG reviewed, sinus rhythm with PVCs. The patient seen by delivery sales worker. His cardiology impression was noted. The patient seen by neurology. FINAL IMPRESSION, PLAN, AND DISCHARGE DIAGNOSES: 1. Witnessed syncope, etiology undetermined. 2. Frequent and premature ventricular contraction. 3. Transient hypotension. 4. Morbid obesity with elevated body mass index of 42. 5. Leukopenia and anemia. 6. Elevated D-dimer, etiology undetermined. 7. Chronic kidney disease stage III/IV. 8. Uncontrolled type 1 insulin-requiring diabetes mellitus with hemoglobin A1c of 7.3. 9. Probable iron deficiency normocytic anemia with decreased iron, decreased iron saturation. 10. Hypovitaminosis D. 11. Cardiomegaly. 12. Left ventricular ejection fraction of 63% with left ventricular hypertrophy. 13. Pulmonary arterial hypertension with moderate pulmonary arterial hypertension with right ventricular systolic pressure of 57 mmHg. 14. Mild mitral regurgitation with mildly thickened mitral valve. 15. Mild pulmonic regurgitation. 16. Bilateral 20%-39% proximal internal carotid artery stenosis. 17. Cerebral cortical atrophy of the brain with subcortical white matter, periventricular white matter ischemic disease. 18. Atherosclerotic intracranial arteries. 19. Right ethmoid sinus mucosal thickening. 20. Bilateral Cerebral Dysfunction on EEG. 1. Syncope, etiology undetermined. 2. Hypotension. 3. Frequent premature ventricular complexes and premature ventricular contractions. 4. Normocytic anemia and leukopenia, etiology undetermined. 5. Elevated D-dimer, etiology undetermined. 6. Chronic kidney disease stage III/IV. 7. Cerebral cortical atrophy of the brain. 8. Small-vessel ischemic disease of the brain. 9. Morbid obesity with elevated body mass index. 10. History of hypertension. 11. History of chronic kidney disease stage III/IV. 12. Possible hyperparathyroidism. 13. History of possible secondary hyperparathyroidism. 14. History of hypertension. 15. Insulin-requiring diabetes mellitus. 16. 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 17. History of hyperuricemia. PLAN: At this time, cardiology, neurology recommendation noted. The patient is awaiting for EEG. If patient's EEG is negative and if patient is cleared by cardiology and neurology, patient will be considered for discharge. I had an extensive meeting with the patient and the patient's daughters, who were present in the room with the nurse practitioner, Kyra Anderson. I have explained to the patient and the patient's family about all the diagnostic test results. CURRENT MEDICATIONS: Aspirin 81 mg daily, Coreg 3.125 twice a day, heparin 5000 subQ q. 8, Humalog low-dose sliding scale coverage a.c. and at bedtime, IV Venofer 200 mg IV daily x 3 doses. Today is the second dose. Lipitor 40 mg daily, Zemplar 2 mcg daily, Protonix 40 mg daily, Renagel 800 mg daily, vitamin B12 1000 mcg daily, vitamin D3 2000 international units daily, allopurinol 300 mg daily. The patient is to be considered for discharge home after EEG is negative and after cleared by neurology and cardiology. The patient has been advised to follow up with Dr. Blunt and all other physicians within 1 week. The patient and the family is to release all records from this hospitalization to all physicians. Discharge medications as per updated ambulatory orders. The patient's new medications were transmitted to the [facility] pharmacy. DISCHARGE MEDICATIONS: Allopurinol 300 mg daily, aspirin 81 mg daily, Lipitor 40 mg daily, Coreg 3.125 twice a day, vitamin D3 2000 units daily, vitamin B12 1000 mcg p.o. daily, Lasix 40 mg p.o. daily, Lantus insulin twice a day plus Humalog KwikPen with meals, Tradjenta 5 mg daily, Cozaar 100 mg daily, magnesium 400 mg daily, Protonix 40 mg daily, Zemplar 2 mcg daily, Renvela 800 mg daily. The patient is advised to stop Norvasc. The patient will be discharged after EEG negative and after cleared by neurology , cardiology. Time spent in the entire discharge process, more than 45 minutes. Dictated and electronically signed, not read. Gerald Alejandre MD cc: [id number] TT: 12/11/2016 15:18:23 en MTDD
[2016-12-11 17:04] VITALS: BP 114/63
--- NOTE | 2016-12-11 18:11 | PN ---
DATE: 12/11/2016 CHIEF COMPLAINT: Follow for syncope. SUBJECTIVE: The patient seen and examined at bedside, EEGs showed mild bilateral cerebral dysfunctio n. MRI of the brain showed no acute intracranial abnormalities, just chronic ischemic changes. Fournier tid ultrasound showed 20%-39% proximal ICA stenosis. Currently, patient is sitting up at the edge of the bed, in no acute distress. No further syncopal episode while she has been in the hospital, bloo d pressure has been optimized. REVIEW OF SYSTEMS: A 14-point review of systems is negative except the HPI. PAST MEDICAL HISTORY: History of hypertension, chronic kidney disease, insulin-dependent diabetes me llitus, morbid obesity. SOCIAL HISTORY: No illicit drug use, smoking, or ETOH abuse. ALLERGIES: No known drug allergies. HOME MEDICATIONS: Reviewed via nurse reconciliation sheet. FAMILY HISTORY: Noncontributory. PHYSICAL EXAMINATION: VITAL SIGNS: Temperature 97.6, pulse rate 70, blood pressure 114/63, respiratory rate 19. GENERAL: The patient sat on edge of bed in no acute distress. HEENT: Atraumatic, normocephalic. PERRLA. Extraocular muscles intact. NECK: Supple, no JVD, no adenopathy noted. LUNGS: Clear to auscultation. No adventitious sounds. HEART: S1, S2, normal rate and rhythm. No murmurs, rubs, or gallops. ABDOMEN: Soft, nontender, nondistended. Bowel sounds are present. EXTREMITIES: No clubbing, no cyanosis. Peripheral pulses 2+ felt bilaterally. NEUROLOGIC: The patient is alert, oriented to person, place, month and year. Speech is fluent, with out any errors. Cranial nerves II through XII are intact. MOTOR: Moves all extremities equally. No paresis. SENSORY: Decreased light touch and pinprick up to the calves bilaterally, decreased vibration of the toes. DEEP TENDON REFLEXES: 2+ throughout, 1 at the ankles. COORDINATION: [id number]-he-rllb intact. GAIT: Deferred for now. LABORATORIES: A1c 7.3. ASSESSMENT AND PLAN: This is an 81-year-old woman with past medical history of hypertension, dyslipi demia, coronary artery disease, type 2 diabetes mellitus, history of morbid obesity, history of left foot amputation, history of hyperuricemia who came in for syncopal event while she was at [employer]. Sh e had a witnessed syncope. She had a syncopal convulsion rather than a seizure which is vasovagal in nature. AT THIS TIME, RECOMMEND: 1. Keep the blood sugars between 140-180. 2. Aspirin 81 mg, Lipitor 40 mg for stroke prevention. 3. Diabetic education given. Counseled on weight reduction and recommend to follow with her primary care doctor within the week and avoid sudden movements. Adequate hydration throughout the day. EEG showed bilateral cerebral dysfunction. No acute intracranial abnormalities on MRI. She is clini watson stable for discharge. Hoang Mcgowan MD cc: [id number] TT: 12/11/2016 18:09:52 Confirmation # [id number] Dictation # [id number] jn
--- NOTE | 2016-12-15 08:16 | EEG ---
DATE: 12/10/2016 An 81-year-old female with a history of syncope. PAST MEDICAL HISTORY: Hypertension and diabetes. DESCRIPTION: Background activity of this tracing was composed of 8 cycles per second alpha-like acti vity. A small amount of beta activity, 16-20 cycles per second, was noted in the tracing. Theta act ivity 5-7 cycles per second was noted in the tracing. Drowsiness was composed of mixed beta and thet a activity. Photic stimulation does not change the record. IMPRESSION: Bilateral cerebral dysfunction, diffuse. Eduin Roslyn CLINE cc: [id number] TT: 12/11/2016 22:18:58 Confirmation # [id number] Dictation # [id number]
== END 2016-12-11 18:38 | disposition home or self-care (01) ==
LOC: ED 20:23 → ERH 12-10 00:32 → 2RNO 12-10 04:42
PROVIDERS: ADMIT Internal Medicine; ATTEND Internal Medicine
DX: R55 Syncope and collapse (principal); E11.22 Type 2 diabetes mellitus with diabetic chronic kidney disease; N18.4 Chronic kidney disease, stage 4 (severe); E11.65 Type 2 diabetes mellitus with hyperglycemia; I65.23 Occlusion and stenosis of bilateral carotid arteries; I25.10 Atherosclerotic heart disease of native coronary artery without angina pectoris; I95.9 Hypotension, unspecified; Z68.41 Body mass index [BMI] 40.0-44.9, adult; E66.01 Morbid (severe) obesity due to excess calories; I27.2 Other secondary pulmonary hypertension; I37.1 Nonrheumatic pulmonary valve insufficiency; E78.5 Hyperlipidemia, unspecified; I34.0 Nonrheumatic mitral (valve) insufficiency; E55.9 Vitamin D deficiency, unspecified; Z79.4 Long term (current) use of insulin; R26.9 Unspecified abnormalities of gait and mobility; D64.9 Anemia, unspecified; I12.9 Hypertensive chronic kidney disease with stage 1 through stage 4 chronic kidney disease, or unspecified chronic kidney disease; Z83.3 Family history of diabetes mellitus; Z82.49 Family history of ischemic heart disease and other diseases of the circulatory system
CPT/HCPCS: 36415; 70450; 70544; 70551; 71010; 71020; 78582; 80053; 80061; 80074; 82248; 82306; 82550; 82553; 82607; 82668; 82728; 82746; 82948; 83036; 83540; 83550; 83735; 83970; 84100; 84439; 84443; 84484; 84550; 85025; 85044; 85378; 85610; 85730; 86592; 93005; 93306; 93880; 96365; 96366; 96372; 99285; A9540; G0378; J1644; J1650; J1756